=== PATIENT | female | born 1985 | race Caucasian/White ===

== ENCOUNTER 2024-01-04 13:59 | Outpatient (AMB) | payer MEDICAID, SELFPAY ==
--- NOTE | 2024-01-04 14:01 | MHC.OFFVIS ---
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 Patient reports that the right is worse than the left. She reports history of leg deformities as a child where she was seen at [facility] for corrective casting and bracing Patient reports that she has had an extensive history of bilateral arthroscopy/menisectomies. These were done at [facility]. She was seen at a pain [facility] facility, who injected steroid in bilateral knees. She would like to talk about knee replacements. Her pain is impacting her daily activity. She does not taking anything for her pain. She also complains of bilateral elbow pain, she has history of left elbow surgery to remove a baseball tumor. She now complains of significant numbness and tingling that radiates from her elbow to the finger tips. 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 Patient reports that the right is worse than the left. She reports history of leg deformities as a child where she was seen at [facility] for corrective casting and bracing Patient reports that she has had an extensive history of bilateral arthroscopy/menisectomies. These were done at [facility]. She was seen at a pain [facility] facility, who injected steroid in bilateral knees. She would like to talk about knee replacements. Her pain is impacting her daily activity. She does not taking anything for her pain. She states she can not walk more than a minute or 2 without pain. She feels quality of her life is severely diminished. She also complains of bilateral elbow pain, she has history of left elbow surgery to remove a baseball tumor. She now complains of significant numbness and tingling that radiates from her elbow to the finger tips. [facility] Social History (Updated 01/04/24 @ 14:12 by Rosetta Linares [facility]) Current occupational status: unemployed Physical Exam Vital Signs: BMI result Body Mass Index 32.4 Extrem Other: Varus bilateral knees left greater than right. Sharp tenderness to palpation medial joint line right greater than left. Lateral retropatellar tenderness to palpation right greater than left. She has 10-125 degrees of motion bilaterally. Results Reviewed Results Reviewed: I personally reviewed relevant radiographs. Severe medial and anterior compartment osteoarthritis bilaterally Assessment & Plan Assessment & Plan (1) Bilateral primary osteoarthritis of knee: Code(s): M17.0 - Bilateral primary osteoarthritis of knee Category: Medical Plan: This is a 38-year-old woman with bilateral knee osteoarthritis right greater than left. She states she has tried injections, medication, therapy, bracing, assistive devices and feels the quality of her life is poor. She states she is frustrated and wants to consider surgery. I have asked to see the records from her prior surgeries which she will obtain for me. I will see her back in 2 weeks. We will continue the discussion. At this time, she does have severe arthritis that involves more than just the medial compartment and so surgical treatment would be bilateral knee arthroplasty. She is only 38 and I would like to try to avoid this if possible. Orders: Orders XR knee LT 3V 01/04/24 M25.562 - Pain in left knee XR knee RT 3V 01/04/24 M25.561 - Pain in right knee Coding Level of Care Code New Pt Level 4 (97327) Diagnoses Bilateral primary osteoarthritis of knee M17.0
[2024-01-04 14:03] VITALS: BMI 32.4
== END 2024-01-04 15:33 | disposition home or self-care (01) ==
PROVIDERS: Visit Provider Orthopaedic Surgery
DX: M17.0 Bilateral primary osteoarthritis of knee (principal)
CPT/HCPCS: 99204

== ENCOUNTER 2024-01-04 13:59 | Outpatient (REF) | payer MEDICAID, SELFPAY ==
--- NOTE | ~2024-01-04 | XR_ITS ---
EXAMINATION: XR KNEE, RIGHT XR KNEE, LEFT CLINICAL INFORMATION: Right knee pain. Left knee pain. COMPARISON: None available.. TECHNIQUE: Standing AP view of both knees and lateral and sunrise views of each knee. FINDINGS: LEFT KNEE: Gpevodyr-ac-cydgmi medial compartment osteoarthritis with joint space narrowing, marginal osteophytes, and articular sclerosis. Cjwn-hm-zezteflg lateral and patellofemoral compartment osteoarthritis. Small joint effusion. No fractures. Slight varus angulation at the knee. RIGHT KNEE: Mhmsqakz-iu-ntfium medial compartment osteoarthritis with joint space narrowing, marginal osteophytes, and articular sclerosis. Slight varus angulation at the knee. More mild lateral and patellofemoral compartment osteoarthritis. Trace effusion. No fractures. XR/XR knee RT 3V IMPRESSION: Tricompartmental osteoarthritis in both knees, most notably in the medial compartments, left greater than right. Electronically signed by: Osman Bullock MD 01/10/2024 09:31 PM EDT
--- NOTE | ~2024-01-04 | XR_ITS ---
EXAMINATION: XR KNEE, RIGHT XR KNEE, LEFT CLINICAL INFORMATION: Right knee pain. Left knee pain. COMPARISON: None available.. TECHNIQUE: Standing AP view of both knees and lateral and sunrise views of each knee. FINDINGS: LEFT KNEE: Jlmcrjzw-ku-umpfvv medial compartment osteoarthritis with joint space narrowing, marginal osteophytes, and articular sclerosis. Uzdg-sn-gxxvfxnc lateral and patellofemoral compartment osteoarthritis. Small joint effusion. No fractures. Slight varus angulation at the knee. RIGHT KNEE: Gyworfix-ja-mkaxao medial compartment osteoarthritis with joint space narrowing, marginal osteophytes, and articular sclerosis. Slight varus angulation at the knee. More mild lateral and patellofemoral compartment osteoarthritis. Trace effusion. No fractures. XR/XR knee LT 3V IMPRESSION: Tricompartmental osteoarthritis in both knees, most notably in the medial compartments, left greater than right. Electronically signed by: Osman Bullock MD 01/10/2024 09:31 PM EDT
== END 2024-01-04 14:00 | disposition home or self-care (01) ==
LOC: HO.HOSX 13:59
PROVIDERS: PCP Internal Medicine; Visit Provider Orthopaedic Surgery
DX: M17.0 Bilateral primary osteoarthritis of knee (principal); M25.562 Pain in left knee; M25.561 Pain in right knee
CPT/HCPCS: 73562; 99202

== ENCOUNTER 2024-01-21 13:29 | Outpatient (AMB) | payer MEDICAID, SELFPAY ==
--- NOTE | 2024-01-21 13:30 | MHC.OFFVIS ---
Vital Signs 01/21/24 13:31 Height 5 ft 4 in Weight 189 lb BMI 32.4 Intake Visit Reasons: OV-B/L knee follow up 2 WKS Intake Note: Alex is a 38 year old female who presents today for a follow up of her bilateral knee OA. She was last seen on 01/04/2024. Patient reports that she is having increased pain today, Left knee worse than the left and also feeling pain in the left knee. Allergies celecoxib [From Celebrex] Allergy (Mild, Unverified 01/04/24 14:10) UNKNOWN NSAIDS (Non-Steroidal Anti-Inflamma [Nsaids] Allergy (Unknown, Unverified 01/04/24 14:10) RASH HPI HPI OV-B/L knee follow up 2 WKS: Details: Alex is a 38 year old female who presents today for a follow up of her bilateral knee OA. She was last seen on 01/04/2024. Patient reports that she is having increased pain today, Left knee worse than the left and also feeling pain in the left knee. She describes difficulty engaging in daily activities. She describes trying ?everything? to alleviate her pain including physical therapy, steroid injections, viscosupplementation as well as bracing. She feels that the quality of her life is severely diminished. Not only can she not exercise but she can not walk more than a few minutes without having to stop because of pain. The pain is medial right knee more than left. She feels at her wits end and has seen several surgeons who had many opinions about her treatment options and have ranged from waiting to getting a knee replacement. She did not have her imaging at last visit but today I reviewed her x-rays and discussed with her treatment options. [facility] Social History Current occupational status: unemployed Physical Exam Vital Signs: BMI result Body Mass Index 32.4 Extrem Other: She has a antalgic gait with varus malalignment bilaterally. Her range of motion is 5-125 degrees bilaterally. She has tenderness to palpation of the medial compartment that is sharp on the right. There is no effusion. Results Reviewed Results Reviewed: I personally reviewed relevant radiographs. There is varus malalignment with bilateral knee osteoarthritis that is affecting the medial and anterior compartments left greater than right. Assessment & Plan Assessment & Plan (1) Bilateral primary osteoarthritis of knee: Code(s): M17.0 - Bilateral primary osteoarthritis of knee Category: Medical Plan: This is a 38-year-old woman with bilateral knee osteoarthritis. She describes a history of knee arthroscopy of injections of viscosupplementation of activity modification of physical therapy and of continued and ongoing knee pain that prevents her from leading a normal life. I had a long discussion with her regarding treatment options including bracing injections physical therapy. I also discussed the challenges arthroplasty in a patient of her age and the risks of aseptic loosening and the high likelihood of need for revision surgery later in life. She understands these risks and is adamant that she has tried everything and would like to proceed forward with arthroplasty. I do not recommend this treatment for a 38-year-old but I do not think it is unreasonable given her attempts at nonoperative treatment and her goals of being able to walk comfortably without pain. Therefore, given the details of her history, I will will proceed forward with right knee replacement. She will require preoperative clearance and we will continue the educational process and I introduced her to our nurse navigator and we will proceed forward accordingly. I also described to her the risks, benefits and alternatives including, but not limited to, the risk of infection, stiffness, need for further surgery, fracture, medical complications such as blood clots, pulmonary embolisms, pneumonia, no ear urinary tract infections. She expressed understanding and we will proceed forward accordingly. Coding Level of Care Code Est Pt Level 4 (89292) Diagnoses Bilateral primary osteoarthritis of knee M17.0
[2024-01-21 13:31] VITALS: BMI 32.4
== END 2024-01-21 15:27 | disposition home or self-care (01) ==
PROVIDERS: PCP Internal Medicine; Visit Provider Orthopaedic Surgery
DX: M17.0 Bilateral primary osteoarthritis of knee (principal)
CPT/HCPCS: 99214

== ENCOUNTER → 2024-01-21 13:29 | Outpatient (BNVA) | payer MEDICAID, SELFPAY | PROVIDERS: PCP Internal Medicine; Visit Provider Orthopaedic Surgery | DX: M17.0 Bilateral primary osteoarthritis of knee (principal) | CPT/HCPCS: 99212 ==

== ENCOUNTER → 2024-03-01 10:52 | Outpatient (BNVA) | payer MEDICAID, SELFPAY | PROVIDERS: PCP Internal Medicine | DX: Z01.818 Encounter for other preprocedural examination (principal) ==

== ENCOUNTER 2024-03-31 10:14 | Outpatient (REF) | payer OTHER, SELFPAY | END 2024-03-31 10:15 | disposition home or self-care (01) | LOC: HO.HOSX 10:14 | PROVIDERS: Visit Provider Physician Assistant | DX: M25.562 Pain in left knee (principal); M17.11 Unilateral primary osteoarthritis, right knee | CPT/HCPCS: 73560; 73562; 99212 ==

== ENCOUNTER 2024-03-31 11:24 | Outpatient (AMB) | payer OTHER, SELFPAY ==
--- NOTE | 2024-03-31 11:41 | MHC.OFFVIS ---
Vital Signs 03/31/24 11:44 Height 5 ft 4 in Weight 193 lb BMI 33.1 Intake Visit Reasons: Pre-Op: R TKA w/NE 04/05/24 Intake Note: Alex is a 38 year old female who presents today with her fiance for her pre operative visit for her right TKA with Dr Buchanan DOS: 04/05/2024. Accompanied by: Fiance Allergies celecoxib [From Celebrex] Allergy (Mild, Unverified 03/31/24 11:44) UNKNOWN NSAIDS (Non-Steroidal Anti-Inflamma [Nsaids] Allergy (Unknown, Unverified 03/31/24 11:44) RASH risperidone Adverse Reaction (Severe, Unverified 03/31/24 11:44) Angioedema acetaminophen [From Tylenol] Adverse Reaction (Mild, Unverified 03/31/24 11:44) Hives Medication List - Last Reconciled 03/31/24 by Melissa Montalvo PA-C alprazolam 1 mg PO TID ashwagandha extract 120 mg PO DAILY methadone 120 mg PO DAILY mometasone 0.1% 1 appl topical BID olanzapine 7.5 mg PO BEDTIME oxcarbazepine 600 mg PO BEDTIME oxcarbazepine 300 mg PO QAM prazosin 4 - 6 mg PO BEDTIME PRN pregabalin 100 mg PO BEDTIME pregabalin 75 mg PO TID walker Folding Front wheeled walker HPI Comments Details: Ms Rodriguez presents to the office today for preop visit. She is scheduled for right total knee arthroplasty with Dr. Buchanan. She continues to have ongoing pain and difficulty with ambulation in the right knee, which is affecting her quality of life; therefore, she has elected to move forward with surgery. [facility] Medical History Methadone use COVID-19 Septic arthritis Night terrors Osteoarthritis PTSD (post-traumatic stress disorder) Bipolar 1 disorder Tenosynovitis Rheumatoid arthritis Fibromyalgia Depression Anxiety Surgical History Hx of arthroscopy of right knee Hx of elbow surgery Hx of arthroscopy of left knee Social History Are you a primary palliative care physician to a significant other at home: No Do you presently have visiting nurse or other home services: No Patient Tobacco Use Status: Former Tobacco user Current occupational status: unemployed Review of Systems Const All systems reviewed & are unremarkable except as noted in HPI and below Physical Exam Vital Signs: BMI result Body Mass Index 33.1 Const General: cooperative and no acute distress Orientation/consciousness: patient oriented x3 HEENT Head: Yes normal to inspection, Yes normocephalic and Yes atraumatic Eyes General: appearance normal, both eyes and all related structures Neck Neck: Yes normal visual inspection and Yes no lymphadenopathy Resp Effort & Inspection: normal respiratory effort and able to speak in complete sentences Cardio Rate: regular rate Peripheral pulses: Peripheral pulses 2+ throughout GI Inspection: Yes normal to inspection Palpation (GI): Soft to palpation Skin General skin exam: no rashes or lesions noted Neuro General: patient oriented x3 Extrem Other: She has a antalgic gait with varus malalignment bilaterally. Her range of motion is 5-125 degrees bilaterally. She has tenderness to palpation of the medial compartment that is sharp on the right. There is no effusion. Psych Appearance: grossly normal Mental Status: mental status grossly normal Assessment & Plan Assessment & Plan (1) Osteoarthritis of right knee: Code(s): M17.11 - Unilateral primary osteoarthritis, right knee Category: Medical Plan I discussed in detail the procedure and what to expect pre and post operatively. We discussed the risks, benefits and alternatives to the surgery as well as the rehabilitation course. The risks; which include, but are not limited to infection, bleeding, nerve injury, ongoing pain, swelling, and stiffness, perioperative risk of injury to bones and soft tissues, and blood clots. I?ve answered all questions and with their understanding they have consented to move forward with Right total knee arthroplasty with Dr. Buchanan She is on methadone Orders: Orders XR knee RT 3V Today M17.11 - Unilateral primary osteoarthritis, right knee PT Evaluation and Treatment Today Z96.651 - Presence of right artificial knee joint XR knee LT 1V Today M25.562 - Pain in left knee Patient Instructions: Scribed for Melissa Montalvo PA-C, by Meng Will adjunct faculty for medical terminology, on 03/31/2024 at 11:30 AM EST.? I, Melissa Montalvo PA-C, have personally reviewed and agree with the information entered by the scribe. Coding Level of Care Code Est Pt Level 3 (89968) Complex EM visit Add On G2211 Diagnoses Osteoarthritis of right knee M17.11
[2024-03-31 11:44] VITALS: BMI 33.1
== END 2024-03-31 12:02 | disposition home or self-care (01) ==
PROVIDERS: PCP Internal Medicine; Visit Provider Physician Assistant
DX: M17.11 Unilateral primary osteoarthritis, right knee (principal)
CPT/HCPCS: 99213; G2211

== ENCOUNTER 2024-03-31 12:03 | Outpatient (REF) | payer OTHER, SELFPAY | END 2024-03-31 12:04 | disposition home or self-care (01) | LOC: HO.LAB 12:03 | PROVIDERS: PCP Internal Medicine; Visit Provider Physician Assistant | DX: Z13.89 Encounter for screening for other disorder (principal) ==

== ENCOUNTER 2024-04-05 06:57 | Day surgery (SDC) | payer OTHER, SELFPAY ==
[2024-03-08 10:32] VITALS: BP 134/74; PULSE 76; RESP 20; O2SAT 100; BMI 33.1
--- NOTE | 2024-03-08 10:52 | P.CONAN_ITS ---
Documented by User: Ro Stafford NP 04/04/24 12:24 HPI - Anesthesia Eval Consult details Narrative: 38yo F for Right Knee Replacement Total, 04/05/24 Optimized per PCP No recent illness No CP/SOB with minimal activity r/t pain RA/OA: No steroid/NSAID tx APAP allergy (hives). Discussed removal of jewlery/piercings/lashes. Pt verbalized understanding and will remove for DOS. PMFSH Active Problems Active Problems: All Active Problems Osteoarthritis of right knee (Acute) Bilateral primary osteoarthritis of knee (Acute) Past Medical History Medical History Methadone use COVID-19 Septic arthritis Night terrors Osteoarthritis PTSD (post-traumatic stress disorder) Bipolar 1 disorder Tenosynovitis Rheumatoid arthritis Fibromyalgia Depression Anxiety Family History Family history of problems with anesthesia: No Surgical History Surgical History Hx of arthroscopy of right knee Hx of elbow surgery Hx of arthroscopy of left knee History of Problems with Anesthesia: No Social History Social History Are you a primary primary care pediatrician to a significant other at home: No Do you presently have visiting nurse or other home services: No Patient Tobacco Use Status: Former Tobacco user Use of substances other than those prescribed or required for medical reasons: Yes Substance Use Type Other:: vape pen Substance Use Frequency: Daily Have you been hit, kicked, punched, or otherwise hurt by someone within the past year? If so, by whom?: No Are you DNR?: No Advance Directives: No Advance Directives Information Provided: Yes Advance Directives on File: No Recently lost weight without trying: No Nutrition Risks: No Nutritional Risk Patient : No : No Poor oral hygiene: Yes (full upper and lower dentures) Current occupational status: unemployed Meds Allergies Allergy/AdvReac Type Severity Reaction Status Date / Time celecoxib [From Celebrex] Allergy Severe Hives Verified 04/05/24 07:45 NSAIDS (Non-Steroidal Allergy Severe RASH Verified 04/05/24 07:45 Anti-Inflamma [Nsaids] risperidone AdvReac Severe Angioedema Verified 04/05/24 07:45 acetaminophen [From Tylenol] AdvReac Mild Hives Verified 04/05/24 07:45 Home Medications ?Medication ?Instructions ?Recorded ?Confirmed ?Last Taken ?Type alprazolam 1 mg tablet 1 mg PO TID 01/04/24 04/05/24 04/05/24 History olanzapine 7.5 mg tablet 7.5 mg PO BEDTIME 01/04/24 04/05/24 04/04/24 History oxcarbazepine 300 mg tablet 300 mg PO QAM 01/04/24 04/05/24 04/05/24 History pregabalin 100 mg capsule 100 mg PO BEDTIME 01/04/24 04/05/24 04/04/24 History pregabalin 75 mg capsule 75 mg PO TID 01/04/24 04/05/24 04/04/24 History prazosin 2 mg capsule 4 - 6 mg PO BEDTIME PRN Insomnia 03/07/24 04/05/24 Unknown History ashwagandha extract 120 mg capsule 120 mg PO DAILY 03/08/24 04/05/24 03/31/24 History oxcarbazepine 300 mg tablet 600 mg PO BEDTIME 03/08/24 04/05/24 04/04/24 History methadone 10 mg tablet 120 mg PO DAILY 03/09/24 04/05/24 04/04/24 07:25 History Exam Height,Weight and Vital Signs: Height 5 ft 4 in Weight 87.543 kg Last Vital Signs Pulse 76 03/08/24 10:32 Resp 20 03/08/24 10:32 BP 134/74 03/08/24 10:32 Pulse Ox 100 03/08/24 10:32 O2 Del Method Room Air 03/08/24 10:32 Pertinent Lab Results Pertinent Lab Results: CBC and BMP 01/2024 from outside facility WNL Narrative Narrative: EKG 01/2024 NSR @ 63 Airway TM Dist: >3cm Neck ROM: Full Denture: Upper and Lower Heart: RRR Lungs: CTAB Assessment and Plan Assessment Anesthesia Assessment: Anesthesia Plan Discussed, Smoking Cess. Discussed and PAT Visit Final Anesthetic Review Family History of Problems with Anesthesia: No History of Problems with Anesthesia: No Documented by User: Desirae Queen MD 04/05/24 08:38 PMFSH Past Medical History Medical History Methadone use COVID-19 Septic arthritis Night terrors Osteoarthritis PTSD (post-traumatic stress disorder) Bipolar 1 disorder Tenosynovitis Rheumatoid arthritis Fibromyalgia Depression Anxiety Surgical History Surgical History Hx of arthroscopy of right knee Hx of elbow surgery Hx of arthroscopy of left knee Social History Social History Are you a primary primary care pediatrician to a significant other at home: No Do you presently have visiting nurse or other home services: No Patient Tobacco Use Status: Former Tobacco user Use of substances other than those prescribed or required for medical reasons: Yes Substance Use Type Other:: vape pen Substance Use Frequency: Daily Have you been hit, kicked, punched, or otherwise hurt by someone within the past year? If so, by whom?: No Are you DNR?: No Advance Directives: No Advance Directives Information Provided: Yes Advance Directives on File: No Recently lost weight without trying: No Nutrition Risks: No Nutritional Risk Patient : No : No Poor oral hygiene: Yes (full upper and lower dentures) Current occupational status: unemployed Meds Allergies Allergy/AdvReac Type Severity Reaction Status Date / Time celecoxib [From Celebrex] Allergy Severe Hives Verified 04/05/24 07:45 NSAIDS (Non-Steroidal Allergy Severe RASH Verified 04/05/24 07:45 Anti-Inflamma [Nsaids] risperidone AdvReac Severe Angioedema Verified 04/05/24 07:45 acetaminophen [From Tylenol] AdvReac Mild Hives Verified 04/05/24 07:45 Home Medications ?Medication ?Instructions ?Recorded ?Confirmed ?Last Taken ?Type alprazolam 1 mg tablet 1 mg PO TID 01/04/24 04/05/24 04/05/24 History olanzapine 7.5 mg tablet 7.5 mg PO BEDTIME 01/04/24 04/05/24 04/04/24 History oxcarbazepine 300 mg tablet 300 mg PO QAM 01/04/24 04/05/24 04/05/24 History pregabalin 100 mg capsule 100 mg PO BEDTIME 01/04/24 04/05/24 04/04/24 History pregabalin 75 mg capsule 75 mg PO TID 01/04/24 04/05/24 04/04/24 History prazosin 2 mg capsule 4 - 6 mg PO BEDTIME PRN Insomnia 03/07/24 04/05/24 Unknown History ashwagandha extract 120 mg capsule 120 mg PO DAILY 03/08/24 04/05/24 03/31/24 History oxcarbazepine 300 mg tablet 600 mg PO BEDTIME 03/08/24 04/05/24 04/04/24 History methadone 10 mg tablet 120 mg PO DAILY 03/09/24 04/05/24 04/04/24 07:25 History Exam Airway Mallampati Class: II TM Dist: >3cm Neck ROM: Full Assessment and Plan Final Anesthetic Review NPO: Yes ASA Class: III Final Preanesthetic Review: No Changes in Pt Med Stat, Meds/Allgs Chart Reviewed, Consent Obtained/Reviewed and Anes Risks/Benef Reviewed Patient Risk: Intermediate Procedure Risk: Intermediate Anesthetic Plan Anesthetic Plan: GA, Regional Block and Agree w/ Assess. and Plan Disposition: Standard PACU
[2024-03-08 13:16] LABS: MRSA Nasal PCR NEGATIVE (Negative); SA Nasal PCR POSITIVE (Negative)
--- NOTE | 2024-04-04 09:44 | HE.PHANOTE ---
METHADONE Dose: 120mg, last dosed 04/04/24 @0725 per Enrique Landeros LPN at [facility]. Patient given 13 take home bottles with 120mg in each bottle.
[2024-04-05] VITALS (19 sets, daily range): BP systolic 131–184; BP diastolic 66–109; PULSE 66–96; RESP 16–24; TEMP 35.8–36.7; O2SAT 93–99; BMI 33.3
--- NOTE | ~2024-04-05 | XR_ITS ---
EXAMINATION: XR KNEE, RIGHT CLINICAL INFORMATION: rt tka COMPARISON: X-ray 03/31/2024 TECHNIQUE: Two views of the right knee. FINDINGS: Status post total knee arthroplasty. Usual position and alignment. No acute periprosthetic fractures. There is gas in the soft tissue and joint. Skin dennis.. XR/XR knee RT 2V IMPRESSION: Postsurgical changes status post total knee arthroplasty. Electronically signed by: Roberto Harden MD 04/05/2024 04:18 PM ELSIE CURIEL
--- NOTE | 2024-04-05 07:28 | MHC.SHP ---
Pre-Procedural Eval Section A - 24 Hr Update-Section A only Date of Service: 04/05/24 The patient is an INPATIENT: No Changes since office visit: No Cold of Flu in the past 2 weeks, No New Medical Problems, No Changes in Medication and No Patient answered all questions The patient has been examined within 24 hours of the surgical procedure. The History & Physical has been completed within 30 days and I have reviewed it.: Yes Section B - Complete if H&P > 30 days Chief Complaint: RT TKA Allergies: Allergies Allergy/AdvReac Type Severity Reaction Status Date / Time celecoxib [From Celebrex] Allergy Mild UNKNOWN Unverified 03/31/24 11:44 NSAIDS (Non-Steroidal Allergy Unknown RASH Unverified 03/31/24 11:44 Anti-Inflamma [Nsaids] risperidone AdvReac Severe Angioedema Unverified 03/31/24 11:44 acetaminophen [From Tylenol] AdvReac Mild Hives Unverified 03/31/24 11:44 Plan I have reviewed the history and physical and performed a pertinent physical examination on my patient. No changes have occurred unless specified. Time Spent With Patient Time: Total time managing care of this patient today ____ minutes.
[2024-04-05 07:34] LABS: UPreg QC Valid YES; Urine Pregnancy NEGATIVE (NEGATIVE)
[2024-04-05] MEDS: Albuterol Sulfate (0.083%) 2.5 MG/3 ML VIAL.NEB INHALE (08:20)
[2024-04-05] MEDS: Lactated Ringers 1,000 ML 100 ML IVCONT ×2 (08:30→14:08)
[2024-04-05 08:32] LABS: Hematocrit 43.4 % (37.0-47.0); Hemoglobin 14.9 g/dl (12.0-16.0)
--- NOTE | 2024-04-05 10:08 | PC.NURSE ---
IV on right upper arm infiltrated. IV site removed. New IV placed on left upper arm, tolerated well. Dr. Bret oshea.
[2024-04-05] MEDS: HYDROmorphone HCl 0.5 MG/0.5 ML SYRINGE 0.25 MG IVPUSH ×8 (12:05→12:40)
--- NOTE | 2024-04-05 12:15 | PM.OP ---
Brief Operative Note Date of Service: 04/05/24 Pre-op diagnosis: Right knee OA Post-op diagnosis: same Procedure: Right TKA Implants: Jaz Triathlon press fit cruciate retaining Surgeon: Juanjose Buchanan MD Anesthesia: GETA and regional Was an Patch Press Operator used for this Procedure?: Yes Patch Press Operator: Melissa Montalvo Estimated blood loss (mL): 100 IV fluids (mL): 750 Pathology: none sent Condition: stable Disposition: PACU
--- NOTE | 2024-04-05 12:17 | W.PM.OPN ---
Operative Note Operative Note Date of Service: 04/05/24 Narrative: Date of Service: 04/05/24 Pre-op diagnosis: Right knee OA Post-op diagnosis: same Procedure: Right TKA Implants: [place] Triathlon press fit cruciate retaining 06/28/9cr/32a Surgeon: Juanjose Buchanan MD Anesthesia: GETA and regional Was an Pipe Organ Builder used for this Procedure?: Yes Pipe Organ Builder: Melissa Montalvo Estimated blood loss (mL): 100 IV fluids (mL): 750 Pathology: none sent Condition: stable Disposition: PACU Procedure in detail: The patient was brought to the operating room and prepped and draped in standard sterile fashion. A time-out was called to identify proper site proper procedure proper surgeon and IV antibiotics were administered. 1 g of IV tranexamic acid was administered. I began by making a midline incision to the retinaculum and performed a medial parapatellar arthrotomy. The patella was translated laterally and the knee was flexed up. There was eburnation of the MFC and the patella with minimal lateral compartment changes. . I performed a small medial peel and resected the infrapatellar fat pad. Issac's line was then used to drill my intramedullary femoral guide and my distal femur cut of 12 mm (10 deg flexion contracture) was made in 5 degrees of valgus while protecting the soft tissues. I then measured a # 3 femur and placed my cutting guide and made my anterior posterior and chamfer cuts protecting the soft tissues at all times. Once I was satisfied with my cuts I turned my attention to the tibia. I removed the meniscus medially and laterally and , using an external cutting guide, in line with the tibial crest and the third ray, I made my distal tibial cut in 3 deg slope of while protecting the PCL the posterior soft tissues at all times. An extension block was used to confirm appropriate amount of bony resection. I then sized a #4 tibia and once I was satisfied that there was complete tibial coverage I placed my trial and with the trial femur in place took the knee through range of motion. I was satisfied with the extension and flexion as well as the stability and balance at 0, 30 and 90 degrees. I then turned my attention to the patella where I removed 1 cm from the undersurface of the patella and then trialed a 32a patellar button. Again the knee was taken through range of motion I was satisfied with the tracking. I then returned to the femur and drilled my femoral lug holes and prepared the tibia. A femoral bone plug was placed and the knee was irrigated copiously. I then press fit the patella, tibia and femur in standard fashion. I trialed different inserts until I selected a #9 insert. The final insert was placed and local TXA was administered. A Werewolf cautery wand was used to maintain hemostasis over the posterior capsule and the meniscal beds. The knee was then closed with a running Quill suture, a 3 0 Vicryl and dennis on the skin. Patient was then placed in sterile dressing and brought to recovery room in stable condition there were no known complications.
--- NOTE | 2024-04-05 12:55 | P.F2F_ITS ---
Service Date Service Date: 04/05/24 Encounter Date of encounter: 04/06/24 Reasons for Services Signs and symptoms assessed: s/p RTKA Pt. is considered homebound due to recent surgery. Unable to drive, poor balance, poor gait mechanics. Reason for physical therapy: home safety and mobility, therapeutic exercises, restore joint function, gait/transfer training and ADL training Homebound: Leaving the home is medically contraindicated at this time without the asist of a device and/or another person due th the listed conditions above and below. Reason homebound: unsteady gait / fall risk, leg weakness, pain with ambulation, pain with transfers, poor balance / fall risk and unable to drive Certification: Based on the above findings, I certify that this patient is confined to the home and needs intermittent long-term care, physical therapy and/or speech th erapy, or continues to need occupational therapy. The patient is under my care, and I have initiated the establishment of the plan of care. The patient will be followed by a physician who will periodically review the plan of care. Time Spent With Patient Time: Total time managing care of this patient today ____ minutes.
--- NOTE | 2024-04-05 12:55 | PM.DS ---
DS: Providers Provider Date of Service: 04/06/24 Primary care physician: Rishabh Montoya MD DS: Summary Hospital Course Hospital Course: The patient underwent a successful right total knee arthroplasty, they were transferred to PACU and then to the floor to recover. During their stay, their vitals were stable, afebrile at 97.6. Labs were unremarkable, H/H 13.0/37.8. POD 1 they were started on Lovenox for DVT ppx, they also received Physical Therapy services. Prior to discharge, their dressing was clean dry and intact and the plan was to be discharged home with VNA services. Time Attestation Discharge Coordination Time (in mins): 30 Quality: Safe Use of Opioids Does Pt have an Active Cancer Diagnosis on the Problem List?: No Quality: Stroke Does the patient have a stroke diagnosis?: No Physical Exam Vital Signs: Vital Signs: Last Vital Signs Temp 98 F 04/05/24 12:05 Pulse 72 04/05/24 12:40 Resp 18 04/05/24 12:40 BP 180/96 H 04/05/24 12:40 Pulse Ox 99 04/05/24 12:40 O2 Del Method Nasal Cannula 04/05/24 12:40 O2 Flow Rate 2 04/05/24 12:40 BMI result Body Mass Index 33.3 Const: General: cooperative, healthy appearing and no acute distress Resp: Effort & Inspection: normal respiratory effort and able to speak in complete sentences Cardio: Rate: regular rate Peripheral pulses: Peripheral pulses 2+ throughout GI: Palpation (GI): Soft to palpation Skin: Lesions: no lesions Rashes: no rashes Extrem: Other: right knee dressing is c/d/i. Able to dorsi/plantar flex. Calf is supple and nontender. Sensation intact. Pedal pulse intact. DS: Data Data Completed and Pending Pending studies at discharge: Pending at discharge 04/05/24 10:38 Surgical [PTH] Routine Labs on day of discharge: Laboratory Results - last 24 hr 04/05/24 04/05/24 07:08 08:25 Hgb 14.9 Hct 43.4 Urine Test NEGATIVE Discharge Plan Discharge Patient Disposition: Home Health Service Referrals: Karina Ashby PA-C [Physician Barrel Lathe Operator Outside] - 04/21/24 12:30 pm Discharge Medications: New enoxaparin 40 mg/0.4 mL Syringe 40 mg subcut Q24H 42 Days Qty: 16.8 0RF oxycodone 10 mg tablet 10 mg PO Q4H PRN (Reason: Pain, Moderate(Pain Scale 4-6)) 7 Days Qty: 42 0RF Rx Instructions: Partial Fill upon patient request. docusate sodium 100 mg Capsule 100 mg PO BID 30 Days Qty: 60 0RF Continued (DME) walker Misc See Rx Instructions .MEDSUPPLY Qty: 1 0RF Rx Instructions: Folding Front wheeled walker prazosin 2 mg capsule 4 - 6 mg PO BEDTIME PRN (Reason: Insomnia) Patient Comments: night terrors oxcarbazepine 300 mg Tablet 600 mg PO BEDTIME ashwagandha extract 120 mg Capsule 120 mg PO DAILY methadone [Methadone Intensol] 10 mg/mL Concentrate 120 mg PO DAILY oxcarbazepine 300 mg tablet 300 mg PO QAM alprazolam 1 mg tablet 1 mg PO TID pregabalin 100 mg capsule 100 mg PO BEDTIME pregabalin 75 mg capsule 75 mg PO TID olanzapine 7.5 mg tablet 7.5 mg PO BEDTIME Discharge Orders: Discharge Order (Routine); Ordered 04/06/24 Ordered By: Karina Ashby Diet: Advance to usual diet Activity on Discharge: Use cane or walker Activity Restrictions/Additional Instructions: Physical Therapy for ROM 0-120, quad strength, gait training. Use walker for ambulation Limit stair climbing, No shower, No tub bath, No driving Continue anticoagulant x 6 weeks Keep Aquacel dressing clean, dry and intact. Follow up with orthopedics in 2 weeks Print Language: Serbian
[2024-04-05] MEDS: HYDROmorphone HCl 0.5 MG/0.5 ML SYRINGE IVPUSH ×4 (13:30→23:53)
[2024-04-05] MEDS: ALPRAZolam 0.5 MG TABLET 1 MG PO ×2 (14:08→20:34)
[2024-04-05] MEDS: Pregabalin 75 MG CAPSULE PO (14:30)
[2024-04-05] MEDS: Acetaminophen 1,000 MG/100 ML PIGGYBACK 400 MG IV (14:30)
[2024-04-05] MEDS: ceFAZolin Sodium/Dextrose,Iso 2 GM/50 ML PIGGYBACK IV (15:29)
[2024-04-05] MEDS: oxyCODONE HCl Immed Release 5 MG TABLET 10 MG PO ×2 (16:25→20:34)
[2024-04-05] MEDS: OLANZapine 7.5 MG TABLET PO (20:34)
[2024-04-05] MEDS: oxyCODONE HCl ER 10 MG TAB.ER.12H PO (20:35)
[2024-04-05] MEDS: Docusate Sodium 100 MG CAPSULE PO (20:35)
[2024-04-05] MEDS: OXcarbazepine 300 MG TABLET 600 MG PO (20:35)
[2024-04-05] MEDS: Pregabalin 100 MG CAPSULE PO (20:35)
[2024-04-05] MEDS: 0.9 % Sodium Chloride Flush 3 ML SYRINGE IVFLUSH (23:54)
[2024-04-06] MEDS: oxyCODONE HCl Immed Release 5 MG TABLET 10 MG PO ×3 (01:06→10:27)
[2024-04-06 03:56] VITALS: BP 139/73; PULSE 65; RESP 16; TEMP 36.2; O2SAT 94
[2024-04-06] MEDS: HYDROmorphone HCl 0.5 MG/0.5 ML SYRINGE IVPUSH ×2 (03:58→09:06)
[2024-04-06 06:58] LABS: MANUAL DIFF FLAG NO
[2024-04-06 07:04] LABS: Basophils Percent Auto 0.2 % (0-2); Eosinophils Percent Auto 0.2 % (0-4); Hematocrit 37.8 % (37.0-47.0); Imm Gran Abs Auto 0.05 X10*3/uL (0.00-0.03); Imm Gran Pct Auto 0.5 % (0.0-0.4); Lymphocytes Absolute Auto 3.1 X10*3/uL (1.2-4.9); Lymphocytes Percent Auto 29.1 % (20-40); Mean Corpuscular HGB Conc 34.4 g/dl (31.0-35.0); Mean Corpuscular Hemoglobin 32.3 pg (27.0-33.0); Monocytes Absolute Auto 1.2 X10*3/uL (0.1-1.2); Monocytes Percent Auto 11.3 % (2-11); Neutrophils Absolute Auto 6.2 x10*3/uL (2.0-8.3); Neutrophils Percent Auto 58.7 % (45-73); Platelet Count 242 X10*3/uL (160-400); Red Blood Count 4.02 X10*6/uL (4.20-5.50); Red Cell Distribution Width 12.2 % (11.0-16.0); White Blood Count 10.5 X10*3/uL (4.8-10.8)
[2024-04-06 07:17] LABS: Anion Gap 12 (12-20); Blood Urea Nitrogen 7 mg/dL (9-16); Calcium 8.3 mg/dL (8.4-10.2); Carbon Dioxide 20 mmol/L (22-29); Chloride 104 mmol/L (96-108); Creatinine Clr Calc Pharmacy 119.9; Estimated Glomerular Filt Rate > 60; Glucose Fasting 154 mg/dL (60-99); Sodium 132 mmol/L (135-145)
[2024-04-06] MEDS: oxyCODONE HCl ER 10 MG TAB.ER.12H PO (07:17)
[2024-04-06] MEDS: Pregabalin 75 MG CAPSULE PO (07:17)
[2024-04-06] MEDS: ALPRAZolam 0.5 MG TABLET 1 MG PO (07:17)
[2024-04-06] MEDS: Docusate Sodium 100 MG CAPSULE PO (07:17)
[2024-04-06] MEDS: OXcarbazepine 300 MG TABLET PO (07:17)
[2024-04-06] MEDS: methADONE HCl 20 MG/2 ML ORAL.CONC 120 MG PO (07:18)
[2024-04-06] MEDS: 0.9 % Sodium Chloride Flush 3 ML SYRINGE IVFLUSH (07:18)
[2024-04-06 07:28] VITALS: BP 145/78; PULSE 73; RESP 18; TEMP 36.1; O2SAT 95
--- NOTE | 2024-04-06 08:03 | PM.PNORT ---
Subjective Subjective Date of Service: 04/06/24 Interval history: POD1 s/p RTKA Patient is resting in bed No overnight events Reports pain is difficult to manage No additional complaints Physical Exam Vital Signs: Vital Signs: Last Vital Signs Temp 96.9 F 04/06/24 07:28 Pulse 73 04/06/24 07:28 Resp 18 04/06/24 07:28 BP 145/78 H 04/06/24 07:28 Pulse Ox 95 04/06/24 07:28 O2 Del Method Room Air 04/06/24 07:28 O2 Flow Rate 2 04/05/24 12:40 BMI result Body Mass Index 33.3 Extrem: Other: right knee dressing is c/d/i. Able to dorsi/plantar flex. Calf is supple and nontender. Sensation intact. Pedal pulse intact. Procedures Date of Service Date of Service: 04/06/24 Progress Note: A&P Assessment and plan (1) Status post total knee replacement, right: Status: Acute Assessment and Plan: Continue pain mgmnt -Difficulty with pain management due to Methadone use -Continue Methadone at regular dose Begin Lovenox for dvt ppx Begin PT for RTKA -Patient reported she was unable to activate her quad which was causing severe anxiety and declined to get up and out of bed yesterday.- Educated that this is normal post op. She understands and accepts. Dispo planning-Pending PT eval, pain mgmnt Patient will need ongoing hospital stay due to pain management and additional physical therapy Time Spent With Patient Time: Total time managing care of this patient today ____ minutes. Quality Stroke Does the patient have a stroke diagnosis?: No VTE Prior VTE?: No VTE Risk Level:: Medical - moderate - high VTE Device Contraindication: N/A - Device Ordered VTE Drug Contraindication: N/A - Med Ordered
[2024-04-06 08:56] VITALS: BP 145/78; PULSE 73; O2SAT 95
--- NOTE | 2024-04-06 08:58 | HO.POSTANES ---
Post Anesthesia Evaluation Post Anesthesia Evaluation Date of Service: 04/06/24 Vital Signs: Vital Signs Temp Pulse Resp BP Pulse Ox O2 Del Method 04/06/24 07:28 96.9 F 73 18 145/78 H 95 Room Air 04/06/24 03:56 97.2 F 65 16 139/73 94 Room Air 04/05/24 23:36 96.8 F 70 16 138/66 93 Room Air Anesthesia: General Endotracheal-GETA Mental Status: Awake Pain Control: Satisfactory (difficult to manage, pt on methadone ) Nausea/Vomiting: None Hydration: Adequate Anesthesia-Related Issues: No Anes. Related Issues
--- NOTE | 2024-04-06 09:48 | MHC.CM.PN ---
Addendum entered by Sasha Lopez RN 04/06/24 09:52: Methadone through [facility]. Original Note: Patient lives in an apartment w/ S.O. and roommate. Has a cane and walker that she uses PRN. Otherwise independent. PCP Rishabh Montoya MD No HCP. CM provided education and offered assistance. Patient declined. DP: Medically cleared for dc home w/ new HVNA services. Will dc on Lovenox. RN will provide teach prior to dc. S.O. will provide transport ~10am. RN aware.
[2024-04-06] MEDS: Enoxaparin Sodium 40 MG/0.4 ML SYRINGE SUBCUT (10:27)
== END 2024-04-06 11:30 | disposition home health service (06) ==
LOC: HO.SSS 07:06 → HO.S3 12:38
PROVIDERS: Nurse Practitioner; Physician Assistant; PCP Internal Medicine; Visit Provider Orthopaedic Surgery
PROC: (CPT 27447; principal; 2024-04-05 09:50)
DX: M17.11 Unilateral primary osteoarthritis, right knee (principal); M06.9 Rheumatoid arthritis, unspecified; M00.9 Pyogenic arthritis, unspecified; F43.10 Post-traumatic stress disorder, unspecified; F31.9 Bipolar disorder, unspecified; Z79.899 Other long term (current) drug therapy; Z79.891 Long term (current) use of opiate analgesic; Z88.6 Allergy status to analgesic agent; Z88.8 Allergy status to other drugs, medicaments and biological substances; Z87.891 Personal history of nicotine dependence; Z98.890 Other specified postprocedural states; Z56.0 Unemployment, unspecified
CPT/HCPCS: 27447; 36415; 73560; 80048; 81025; 85014; 85018; 85025; 86850; 86900; 86901; 87640; 87641; 88305; 88311; 94640; 97162; C1776; J0131; J0665; J0690; J1100; J1171; J1650; J2003; J2250; J2405; J2704; J2795; J3010; J7120

== ENCOUNTER → 2024-04-05 06:57 | Outpatient (BNV) | payer OTHER, SELFPAY | PROVIDERS: PCP Internal Medicine; Visit Provider Orthopaedic Surgery | DX: Z47.1 Aftercare following joint replacement surgery (principal); Z96.651 Presence of right artificial knee joint | CPT/HCPCS: 27447; 99024; G0180 ==

== ENCOUNTER 2024-04-11 12:52 | Emergency (ER) | payer OTHER, SELFPAY ==
--- NOTE | ~2024-04-11 | XR_ITS ---
EXAMINATION: XR KNEE, RIGHT CLINICAL INFORMATION: pain, recent TKA COMPARISON: 04/05/2024, 03/31/2024, 01/04/2024. TECHNIQUE: Four views of the right knee. FINDINGS: There is been a total right knee arthroplasty, with tibial, and femoral components intact, well seated, in anatomic alignment. No periprosthetic fracture or evidence of loosening. There is no fracture, or focal bony abnormality. There is a prominent suprapatellar joint effusion on the lateral projection. There are skin dennis in the ventral midline. There appears to be slightly increased soft tissue swelling anteriorly when compared with the prior exam of 04/05/2024. XR/XR knee RT 3V IMPRESSION: 1. Right knee arthroplasty without complication. 2. Joint effusion in the suprapatellar bursa. 3. Increasing anteromedial soft tissue swelling when compared with 04/05/2024. Electronically signed by: Osman Jimenez MD 04/11/2024 02:29 PM ELSIE
--- NOTE | ~2024-04-11 | US_ITS ---
EXAMINATION: US TRIPLEX LOWER EXTREMITY, RIGHT CLINICAL INFORMATION: Swelling, knee replacement 04/05/2024. Rule out DVT. COMPARISON: None available. TECHNIQUE: Color-flow triplex imaging with spectral analysis and compression Doppler were performed on the right lower extremity. FINDINGS: Respiratory variation, normal compression and augmented flow are noted throughout the right lower extremity. The visualized common femoral vein, superficial femoral vein, profunda femoral vein, popliteal vein and midcalf posterior tibial venous segments show no evidence of deep venous thrombosis. The right peroneal vein could not be well visualized due to edema. There is no Lawson's cyst. US/US venous duplex LE RT IMPRESSION: No evidence of deep venous thrombosis involving the right lower extremity. Electronically signed by: Osman Jimenez MD 04/11/2024 04:46 PM ELSIE CURIEL
[2024-04-11 13:22] VITALS: BP 123/90; PULSE 86; RESP 16; TEMP 37.2; O2SAT 95; BMI 33.3
--- NOTE | 2024-04-11 13:24 | ED_ITS ---
HPI - General Adult General Chief complaint: Wound/Laceration Stated complaint: wound check Time Seen by Provider: 04/11/24 14:26 Source: patient and RN notes reviewed Mode of arrival: ambulatory Limitations: no limitations History of Present Illness ED Provider: Nathaly Gamboa PA-C HPI narrative: This is a 28-ldsz-hho-female, with a history of osteoarthritis with recent right total knee replacement performed on 04/05/2024, who presents to the ER for wound check. Patient states that she has noticed increased pain, swelling, drainage from her surgical incision site. She states that the pain in her knee feels worse today. Also endorsing some swelling to her leg. She denies any fevers, chills, chest pain, shortness of breath, abdominal pain, nausea, vomiting or diarrhea. She has been taking her prescribed pain medication at home with some relief. She was told by her physical therapist to come to the emergency room for evaluation as she noticed increased drainage from her wound site and was concerned that this was infected. Other complaints or concerns at this time. MD complaint: Wound check Onset (ago): day(s) Quality: aching Pain Consistency: constant Relieving factors: none Exacerbating factors: none Associated symptoms: denies other symptoms Treatments prior to arrival: none Related Data Home Medications ?Medication ?Instructions ?Recorded ?Confirmed alprazolam 1 mg tablet 1 mg PO TID 01/04/24 04/05/24 olanzapine 7.5 mg tablet 7.5 mg PO BEDTIME 01/04/24 04/05/24 oxcarbazepine 300 mg tablet 300 mg PO QAM 01/04/24 04/05/24 pregabalin 100 mg capsule 100 mg PO BEDTIME 01/04/24 04/05/24 pregabalin 75 mg capsule 75 mg PO TID 01/04/24 04/05/24 prazosin 2 mg capsule 4 - 6 mg PO BEDTIME PRN Insomnia 03/07/24 04/05/24 ashwagandha extract 120 mg capsule 120 mg PO DAILY 03/08/24 04/05/24 oxcarbazepine 300 mg tablet 600 mg PO BEDTIME 03/08/24 04/05/24 methadone 10 mg/mL oral 120 mg PO DAILY 04/05/24 04/05/24 concentrate (Methadone Intensol) Previous Rx's ?Medication ?Instructions ?Recorded walker #1 ea 02/29/24 docusate sodium 100 mg capsule 100 mg PO BID 30 days #60 caps 04/06/24 enoxaparin 40 mg/0.4 mL 40 mg (0.4 mL) subcut Q24H 42 days 04/06/24 subcutaneous syringe #16.8 mL oxycodone 10 mg tablet 10 mg PO Q4H PRN Pain, 04/06/24 Moderate(Pain Scale 4-6) 7 days #42 tabs Allergies Allergy/AdvReac Type Severity Reaction Status Date / Time celecoxib [From Celebrex] Allergy Severe Hives Verified 04/11/24 13:25 NSAIDS (Non-Steroidal Allergy Severe RASH Verified 04/11/24 13:25 Anti-Inflamma [Nsaids] risperidone AdvReac Severe Angioedema Verified 04/11/24 13:25 acetaminophen [From Tylenol] AdvReac Mild Hives Verified 04/11/24 13:25 Review of Systems 2 Review of Systems: Yes all other systems are reviewed and are negative Constitutional: Constitutional: Reports as per [facility] Past Medical History Medical History Methadone use COVID-19 Septic arthritis Night terrors Osteoarthritis PTSD (post-traumatic stress disorder) Bipolar 1 disorder Tenosynovitis Rheumatoid arthritis Fibromyalgia Depression Anxiety Surgical History Hx of arthroscopy of right knee Hx of elbow surgery Hx of arthroscopy of left knee Social History Social History Household Members: Significant Other Housing: House Are you a primary toddler caregiver to a significant other at home: No Do you presently have visiting nurse or other home services: No Patient Tobacco Use Status: Former Tobacco user Substance Use Type: Marijuana Advance Directives: No Advance Directives Information Provided: No Do you have a plan to hurt others: No Plan service: No Current occupational status: unemployed Physical Exam ED Vital Signs: Vital Signs - 24 hr 04/11/24 13:22 04/11/24 16:06 Temperature 99.0 F 99.8 F Pulse Rate 86 69 Respiratory Rate 16 16 Blood Pressure 123/90 H 124/75 Pulse Oximetry 95 98 Oxygen Delivery Method Room Air Room Air BMI result Body Mass Index 33.3 Const General: cooperative, comfortable and no acute distress Orientation/consciousness: patient oriented x3 Limitations: no limitations HENMT Head: Yes normal to inspection, Yes normocephalic and Yes atraumatic Ears: hearing grossly normal bilaterally General nose exam: Normal external nose present Face and sinus: Yes normal facial exam Mouth: Normal oral and palatal mucosa present, oropharynx normal and moist mucous membranes Throat: Yes posterior oropharynx normal Eyes General: appearance normal, both eyes and all related structures Eyelids: Yes eyelids normal Conjunctivae: conjunctivae normal Sclerae: sclerae normal Pupils: Equal, round and reactive pupils present EOM: EOMs intact bilaterally Neck Neck: Yes normal visual inspection, Yes full ROM and Yes no lymphadenopathy Lymphatic: no lymphadenopathy noted Chest Chest palpation & inspection: normal inspection of the chest Resp Effort & Inspection: normal respiratory effort and able to speak in complete sentences Auscultation: clear to auscultation bilaterally, no crackles, no rales, no rhonchi and no wheezes Cardio Rate: regular rate Rhythm: regular rhythm Heart sounds: S1 normal heart sound present and S2 normal heart sound present GI Inspection: Yes normal to inspection Skin General skin exam: no rashes or lesions noted Trauma: no lacerations or abrasions Wounds: no wounds Neuro General: patient oriented x3 and moves all extremities Cranial nerves: Yes Equal, round and reactive pupils present Extrem Other: R knee anterior aspect there is a large surgical incision with dennis present, scant clear serosanguineous drainage noted from wound. No surrounding erythema or warmth. Mild ecchymosis noted. Compartments are soft. Strong DP pulse. No calf tenderness. General: Yes normal to inspection Right upper extremity: normal to inspection Left upper extremity: normal to inspection Right lower extremity: normal to inspection Left lower extremity: normal to inspection Course Reevaluation(s) Reevaluation #1: Ultrasound ordered and pending radiology report. Patient was medicated with oxycodone 10 mg by mouth in the department as this is her that she is taking for her knee. We will continue to closely monitor pending ultrasound report Time: 16:34 Reevaluation #2: US neg for DVT. Discussed with patient. Wound well healing, dressing changed by LARRY Quiroga. Pt stable for d/c. given return precautions. Medications Administered Discontinued Medications Generic Name Dose Route Start Last Admin Trade Name Freq PRN Reason Stop Dose Admin Oxycodone HCl 10 mg 04/11/24 15:57 04/11/24 16:05 Oxycodone Hcl Immed Release 5 Mg Tablet PO 04/11/24 15:58 10 mg ONCE ONE Administration Medical Decision Making Medical Decision Making [facility] Narrative: This is a 40-kajp-hcd-female, with a history of osteoarthritis with recent TKR performed on 04/05, who presents to the ER for wound check. Patient states that she has had increased pain, drainage from the wound. On arrival, vital signs within normal limits. She is speaking in full sentences under no acute distress. No chest pain, shortness of breath, fevers or body aches. Labs were obtained, she has no leukocytosis, stable H&H, chemistry revealing slight elevation in AST and ALT no previous on record for comparison. Orthopedic Ta- Sonja Montalvo PA-C assess patient, wound does not appear to be infected. Patient is still on Lovenox. DVT less likely however still a possibility, ultrasound will be ordered. Differential Diagnosis Differential Diagnoses: The differential diagnosis associated with the presentation includes cellulitis, TKA wound infection, wound dehiscence, DVT Lab Data [facility] Lab Attestation statement: I reviewed the patient's lab results. See [facility] 04/11/24 14:00 04/11/24 14:00 Labs: Lab Results 04/11/24 Range/Units 14:00 WBC 8.6 (4.8-10.8) X10*3/uL RBC 3.96 L (4.20-5.50) X10*6/uL Hgb 12.9 (12.0-16.0) g/dl Hct 37.5 (37.0-47.0) % MCV 94.7 (80.0-98.0) fL MCH 32.6 (27.0-33.0) pg MCHC 34.4 (31.0-35.0) g/dl RDW 12.4 (11.0-16.0) % Plt Count 325 D (160-400) X10*3/uL MPV 8.8 L (9.4-12.3) fL Immature Gran % (Auto) 0.7 H (0.0-0.4) % Neut % (Auto) 52.9 (45-73) % Lymph % (Auto) 34.7 (20-40) % [place] % (Auto) 9.5 (2-11) % Eos % (Auto) 2.0 (0-4) % Baso % (Auto) 0.2 (0-2) % Lymph # (Auto) 3.0 (1.2-4.9) X10*3/uL [place] # (Auto) 0.8 (0.1-1.2) X10*3/uL Eos # (Auto) 0.2 (0.0-0.4) X10*3/uL Baso # (Auto) 0.0 (0.0-0.2) X10*3/uL Abs Immat Gran (auto) 0.06 H (0.00-0.03) X10*3/uL Absolute Neuts (auto) 4.6 (2.0-8.3) x10*3/uL Absolute Nucleated RBC 0.000 (0.0-0.012) X10*3/uL Nucleated RBC % (auto) 0.0 (0.0-0.2) /100WBC Sodium 140 (135-145) mmol/L Potassium 3.5 (3.3-5.1) mmol/L Chloride 106 (96-108) mmol/L Carbon Dioxide 27 (22-29) mmol/L Anion Gap 11 L (12-20) BUN 10 (9-16) mg/dL Creatinine 0.68 (0.5-1.4) mg/dL Estim Creat Clear Calc 118.1 Estimated GFR > 60 Random Glucose 84 (60-115) mg/dL Calcium 8.6 (8.4-10.2) mg/dL Total Bilirubin 0.5 (0.0-1.0) mg/dL Direct Bilirubin 0.2 (0.0-0.5) mg/dL AST 45 H (5-31) U/L ALT 44 H (0-31) U/L Alkaline Phosphatase 85 (39-117) U/L Total Protein 7.8 (6.5-8.0) g/dL Albumin 3.9 (3.5-5.0) g/dL Radiology Impression Discussion of test interpretation with radiology: I have reviewed the radiologist's reading. Radiologist Impression: XR/XR knee RT 3V IMPRESSION: 1. Right knee arthroplasty without complication. 2. Joint effusion in the suprapatellar bursa. 3. Increasing anteromedial soft tissue swelling when compared with 04/05/2024. Electronically signed by: Osman Jimenez MD 04/11/2024 02:29 PM EST RP Dictated By: Osman Jimenez MD US/US venous duplex LE RT IMPRESSION: No evidence of deep venous thrombosis involving the right lower extremity. Electronically signed by: Osman Jimenez MD 04/11/2024 04:46 PM EST RP Discharge Plan Discharge Clinical Impression: Encounter for post surgical wound check, Elevated liver enzymes Patient Disposition: Home, Self-Care Instructions: Acute Wounds (ED) Additional Instructions: You were seen in the emergency department due to a wound check. Your blood work was reassuring. You were seen by the orthopedic PAs and your surgical site appears to be well healing. Please continue all at home medications as prescribed. Follow up with the orthopedist as scheduled. Your US was reviewed with no blood clot noted. If any new or worsening symptoms occur including but not limited to severe chest pain, shortness of breath, woresning redness, swelling, pain, please seek emergent care. Of note, your liver enzymes were elevated, please follow up with your PCP to have these re-evaluated. Prescriptions: No Action (DME) walker Misc See Rx Instructions .MEDSUPPLY Qty: 1 0RF Rx Instructions: Folding Front wheeled walker prazosin 2 mg capsule 4 - 6 mg PO BEDTIME PRN (Reason: Insomnia) Patient Comments: night terrors oxcarbazepine 300 mg Tablet 600 mg PO BEDTIME ashwagandha extract 120 mg Capsule 120 mg PO DAILY methadone [Methadone Intensol] 10 mg/mL Concentrate 120 mg PO DAILY enoxaparin 40 mg/0.4 mL Syringe 40 mg subcut Q24H 42 Days Qty: 16.8 0RF oxycodone 10 mg tablet 10 mg PO Q4H PRN (Reason: Pain, Moderate(Pain Scale 4-6)) 7 Days Qty: 42 0RF Rx Instructions: Partial Fill upon patient request. docusate sodium 100 mg Capsule 100 mg PO BID 30 Days Qty: 60 0RF oxcarbazepine 300 mg tablet 300 mg PO QAM alprazolam 1 mg tablet 1 mg PO TID pregabalin 100 mg capsule 100 mg PO BEDTIME pregabalin 75 mg capsule 75 mg PO TID olanzapine 7.5 mg tablet 7.5 mg PO BEDTIME Interventions: ED Discharge Assessment Last Done: 04/11/24 17:06 Discharge Date/Time: 04/11/24 17:07 Print Language: Spanish
[2024-04-11 14:05] LABS: MANUAL DIFF FLAG NO
[2024-04-11 14:07] LABS: Basophils Percent Auto 0.2 % (0-2); Eosinophils Absolute Auto 0.2 X10*3/uL (0.0-0.4); Hematocrit 37.5 % (37.0-47.0); Hemoglobin 12.9 g/dl (12.0-16.0); Imm Gran Abs Auto 0.06 X10*3/uL (0.00-0.03); Imm Gran Pct Auto 0.7 % (0.0-0.4); Lymphocytes Percent Auto 34.7 % (20-40); Mean Corpuscular HGB Conc 34.4 g/dl (31.0-35.0); Mean Corpuscular Hemoglobin 32.6 pg (27.0-33.0); Mean Corpuscular Volume 94.7 fL (80.0-98.0); Mean Platelet Volume 8.8 fL (9.4-12.3); Monocytes Absolute Auto 0.8 X10*3/uL (0.1-1.2); Monocytes Percent Auto 9.5 % (2-11); Neutrophils Absolute Auto 4.6 x10*3/uL (2.0-8.3); Neutrophils Percent Auto 52.9 % (45-73); Platelet Count 325 X10*3/uL (160-400); Red Blood Count 3.96 X10*6/uL (4.20-5.50); Red Cell Distribution Width 12.4 % (11.0-16.0); White Blood Count 8.6 X10*3/uL (4.8-10.8)
[2024-04-11 14:24] LABS: Alanine Aminotransferase 44 U/L (0-31); Albumin Level 3.9 g/dL (3.5-5.0); Alkaline Phosphatase 85 U/L (39-117); Anion Gap 11 (12-20); Aspartate Amino Transferase 45 U/L (5-31); Bilirubin Direct 0.2 mg/dL (0.0-0.5); Bilirubin Total 0.5 mg/dL (0.0-1.0); Blood Urea Nitrogen 10 mg/dL (9-16); Calcium 8.6 mg/dL (8.4-10.2); Carbon Dioxide 27 mmol/L (22-29); Chloride 106 mmol/L (96-108); Creatinine Clr Calc Pharmacy 118.1; Estimated Glomerular Filt Rate > 60; Glucose Random 84 mg/dL (60-115); Potassium 3.5 mmol/L (3.3-5.1); Sodium 140 mmol/L (135-145); Total Protein 7.8 g/dL (6.5-8.0)
[2024-04-11] MEDS: oxyCODONE HCl Immed Release 5 MG TABLET 10 MG PO (16:05)
[2024-04-11 16:06] VITALS: BP 124/75; PULSE 69; RESP 16; TEMP 37.7; O2SAT 98
[2024-04-11 17:06] VITALS: BP 123/70; PULSE 66; RESP 14; TEMP 37.3; O2SAT 98
== END 2024-04-11 17:07 | disposition home or self-care (01) ==
PROVIDERS: Physician Assistant Medical; Emergency Provider Emergency Medicine; PCP Internal Medicine
DX: R60.0 Localized edema (principal); R79.89 Other specified abnormal findings of blood chemistry; M25.561 Pain in right knee; Z79.899 Other long term (current) drug therapy; Z48.00 Encounter for change or removal of nonsurgical wound dressing
CPT/HCPCS: 36415; 73562; 80048; 80076; 85025; 93971; 99283; 99284

== ENCOUNTER → 2024-04-11 13:27 | Outpatient (BNV) | payer OTHER, SELFPAY | PROVIDERS: Emergency Provider Emergency Medicine; PCP Internal Medicine; Visit Provider Radiology Diagnostic Radiology | DX: M25.461 Effusion, right knee (principal); Z96.651 Presence of right artificial knee joint | CPT/HCPCS: 73562; 93971 ==

== ENCOUNTER 2024-04-21 12:44 | Outpatient (AMB) | payer OTHER, SELFPAY ==
--- NOTE | 2024-04-21 12:50 | MHC.OFFVIS ---
Intake Visit Reasons: TM YARON: 2WK PO: R TKA w/NE 04/05/24 Intake Note: Alex is a 38 year old female who presents today for a post op appointment s/p Right TKA 04/05/24 NE. Patient reports she is in a lot of pain and she feels a throbbing sensation near the alaniz. Allergies celecoxib [From Celebrex] Allergy (Severe, Verified 04/21/24 13:01) Hives NSAIDS (Non-Steroidal Anti-Inflamma [Nsaids] Allergy (Severe, Verified 04/21/24 13:01) RASH risperidone Adverse Reaction (Severe, Verified 04/21/24 13:01) Angioedema acetaminophen [From Tylenol] Adverse Reaction (Mild, Verified 04/21/24 13:01) Hives HPI HPI TM YARON: 2WK PO: R TKA w/NE 04/05/24: Details: 38-year-old female who presents in the office today for a 16-day status post right total knee arthroplasty, which was performed on 04/05/[address] Buchanan. The patient presented to the ED on 04/11/24 due to increased pain, edema, and drainage from her surgical incision site. X-rays of the right knee and ultrasound of the right lower extremity were obtained. The surgical site was noted to be well healed and was recommended to continue prescribed medications at home.? While in the office today, the patient reports severe pain in the right knee. She mentions experiencing a throbbing sensation near the right alaniz region. PFSH Medical History Methadone use COVID-19 Septic arthritis Night terrors Osteoarthritis PTSD (post-traumatic stress disorder) Bipolar 1 disorder Tenosynovitis Rheumatoid arthritis Fibromyalgia Depression Anxiety Surgical History Hx of arthroscopy of right knee Hx of elbow surgery Hx of arthroscopy of left knee Social History Household Members: Significant Other Housing: House Are you a primary care consultant to a significant other at home: No Do you presently have visiting nurse or other home services: No Patient Tobacco Use Status: Former Tobacco user Substance Use Type: Marijuana service: No Current occupational status: unemployed Review of Systems Const All systems reviewed & are unremarkable except as noted in HPI and below Physical Exam Const General: cooperative, healthy appearing and no acute distress Resp Effort & Inspection: normal respiratory effort and able to speak in complete sentences Cardio Rate: regular rate Peripheral pulses: Peripheral pulses 2+ throughout GI Palpation (GI): Soft to palpation Skin Lesions: no lesions Rashes: no rashes Extrem Other: Right knee: Incision site is clean, dry, and intact. Alondra intact. No surrounding erythema or drainage. No signs of infection. Poor active quad function. ROM passively is 0-90 degrees. NVI. Assessment & Plan Assessment & Plan (1) Status post total knee replacement, right: Code(s): Z96.651 - Presence of right artificial knee joint Category: Surgical (2) Osteoarthritis of right knee: Code(s): M17.11 - Unilateral primary osteoarthritis, right knee Category: Medical Plan Ms. Rodriguez is a 38-year-old female who presents in the office today for a 16 days status post right total knee arthroplasty, which was performed on 04/05/[address] Buchanan. The patient presented to the ED on 04/11/24 due to increased pain,edema and drainage from her surgical incision site. X-rays of the right knee and ultrasound of the right lower extremity were obtained. The surgical site was noted to be well healing and was recommended to continue prescribed medications at home. While in the office today, the patient reports severe pain in the right knee. She mentions experiencing a throbbing sensation near the right alaniz region. Alondra were removed, and steri-strips were applied. I would like the patient to follow-up in two weeks with Melissa POWELL while Dr. Buchanan is in the office to evaluate the quad function and quad tendon. She has her first physical therapy appointment set for 04/25/24 at 1:00 PM EST in which she will attend. She will keep her six week follow-up with Dr. Buchanan on 05/12/23. Follow-up will be in 2 weeks with Melissa POWELL, or sooner if needed. Patient Instructions: Scribed by Leona Camarena medical or surgical instrument maker, for Karina Ashby PA-C on 04/21/24 at 01:19 pm EST. Coding Level of Care Code Global (07966) Diagnoses Status post total knee replacement, right Z96.651 Osteoarthritis of right knee M17.11
== END 2024-04-21 13:23 | disposition home or self-care (01) ==
PROVIDERS: PCP Internal Medicine; Visit Provider Physician Assistant
DX: Z96.651 Presence of right artificial knee joint (principal); M17.11 Unilateral primary osteoarthritis, right knee
CPT/HCPCS: 99024

== ENCOUNTER → 2024-04-21 12:44 | Outpatient (BNVA) | payer OTHER, SELFPAY | PROVIDERS: PCP Internal Medicine; Visit Provider Physician Assistant | DX: M25.561 Pain in right knee (principal); Z47.1 Aftercare following joint replacement surgery; Z96.651 Presence of right artificial knee joint | CPT/HCPCS: 99212 ==

== ENCOUNTER 2024-05-05 14:46 | Outpatient (AMB) | payer OTHER, SELFPAY ==
--- NOTE | 2024-05-05 14:53 | MHC.OFFVIS ---
Vital Signs 05/05/24 15:04 Height 5 ft 4 in Weight 194 lb BMI 33.3 Intake Visit Reasons: 2WK PO: R TKA w/NE 04/05/24-eval quad tendon Allergies celecoxib [From Celebrex] Allergy (Severe, Verified 04/21/24 13:01) Hives NSAIDS (Non-Steroidal Anti-Inflamma [Nsaids] Allergy (Severe, Verified 04/21/24 13:01) RASH risperidone Adverse Reaction (Severe, Verified 04/21/24 13:01) Angioedema acetaminophen [From Tylenol] Adverse Reaction (Mild, Verified 04/21/24 13:01) Hives HPI HPI 2WK PO: R TKA w/NE 04/05/24-eval quad tendon: Details: 38-year-old female returns to the office today 4 weeks status post right total knee arthroplasty with Dr. Buchanan. She states she has been doing well working with physical therapy and was even using her cane yesterday but feels she over did it yesterday and is having worsened pain today. She is ambulating with a walker today. FORMERLY [facility] Medical History Methadone use COVID-19 Septic arthritis Night terrors Osteoarthritis PTSD (post-traumatic stress disorder) Bipolar 1 disorder Tenosynovitis Rheumatoid arthritis Fibromyalgia Depression Anxiety Surgical History Hx of arthroscopy of right knee Hx of elbow surgery Hx of arthroscopy of left knee Social History Household Members: Significant Other Housing: House Are you a primary career and transition teacher to a significant other at home: No Do you presently have visiting nurse or other home services: No Patient Tobacco Use Status: Former Tobacco user Substance Use Type: Marijuana service: No Current occupational status: unemployed Review of Systems Const All systems reviewed & are unremarkable except as noted in HPI and below Physical Exam Extrem Other: Right knee incision well healed. No erythema no joint effusion. She is able to perform a straight leg raise and can bend at 95 degrees flexion. Calf supple nontender neurovascularly intact. Assessment & Plan Assessment & Plan (1) Status post total knee replacement, right: Code(s): Z96.651 - Presence of right artificial knee joint Category: Surgical Plan: Dr. Buchanan was available to see the patient with me today. She will continue working with physical therapy to improve her quad function and maintain her range of motion. Gait mechanics. Transition to a cane as tolerated. She will follow up in [address] Buchanan to resume her 6 week postop joint treatment plan with Dr. Buchanan. Coding Level of Care Code Global (09428) Diagnoses Status post total knee replacement, right Z96.651
[2024-05-05 15:04] VITALS: BMI 33.3
== END 2024-05-05 15:05 | disposition home or self-care (01) ==
PROVIDERS: PCP Internal Medicine; Visit Provider Physician Assistant
DX: Z96.651 Presence of right artificial knee joint (principal)
CPT/HCPCS: 99024

== ENCOUNTER → 2024-05-05 14:46 | Outpatient (BNVA) | payer OTHER, SELFPAY | PROVIDERS: PCP Internal Medicine; Visit Provider Physician Assistant | DX: Z47.1 Aftercare following joint replacement surgery (principal); Z96.651 Presence of right artificial knee joint | CPT/HCPCS: 99212 ==

== ENCOUNTER 2024-05-23 07:51 | Outpatient (REF) | payer OTHER, SELFPAY ==
--- NOTE | ~2024-05-23 | XR_ITS ---
EXAMINATION: XR KNEE 3 VIEWS RIGHT HISTORY: M25.561 - Pain in right knee COMPARISON: Comparison is made with the prior examination dated 04/11/2024. FINDINGS: Standing AP views of the bilateral knees and additional lateral and sunrise patellar views of the right knee are submitted. The patient is again noted to be status post total knee arthroplasty. The orthopedic elements are in anatomic alignment. There is no radiographic evidence of loosening. There is no fracture or dislocation. There is a trace suprapatellar joint effusion. XR/XR knee RT 3V IMPRESSION: Status post right total knee arthroplasty. Electronically signed by: Byron Rodarte MD 05/24/2024 08:27 AM ELSIE
--- OUTSIDE RECORDS SUMMARY | 2024-05-23 07:54 | XMS_ITS | Clinical Summary ---
Author Organization [facility] ity Address [address] [place] [address] Care Team Providers Care Director Of Corporate Communications Name Role Phone Gretta Lanier DO Primary Care Provider Surgical History Surgery Date Site/Laterality Comments KNEE SURGERY PROCEDURE: HISTORICAL KNEE SURGERY Family History Medical History Relation Name Comments Other: fibromyalgia Father Diabetes Maternal Grandmother Relation Name Status Comments Father Alive Maternal Grandmother Mother Alive Social History Tobacco Use Types Packs/Day Years Used Date Smoking Tobacco: Former Cigarettes Q uit: 06/07/2008 Alcohol Use Standard Drinks/Week Comments No 0 (1 standard drink = 0.6 oz pur e alcohol) Sex and Gender Information Value Date Recorded Sex Assigned at Not on file Gender Identity Not on file Sexual Orientation Not on file Obstetrics History Plan of Treatment Health Maintenance Due Date Last Done Comments Breast Cancer Screening 1983 DTaP,Tdap,and Td Vaccines (1 - Tdap) 12/11/2002 Hepatitis B Vaccines (1 of 3 - 19+ 3-dose series) 12/11/2002 Cervical Cancer Screening: P ap Smear 12/11/2004 COVID-19 Vaccine (2023-2 5 season) 2023 Influenza Vaccine (#1) 2023 HIB Vaccines Aged Out No longer eligi ble based on patient's age to complete this topic HPV Vaccines Aged Out No longer eligi ble based on patient's age to complete this topic Hepatitis A Vaccines Aged Out No long er eligible based on patient's age to complete this topic IPV Vaccines Aged Out No longer eligi ble based on patient's age to complete this topic MMR Vaccines Aged Out No longer eligi ble based on patient's age to complete this topic Meningococcal ACWY Vaccine Aged Out N o longer eligible based on patient's age to complete this topic Pneumococcal Vaccine: Pediat rics (0 to 5 Years) and At-Risk Patients (6 to 64 Years) Aged Out No longer eligible b ased on patient's age to complete this topic RSV Immunization Patients Un vicente 20 months Aged Out No longer eligible b ased on patient's age to complete this topic Varicella Vaccines Aged Out No longer eligible based on patient's age to complete this topic Care Teams Director Of Corporate Communications Relationship Specialty Start Date End Date Gretta Lanier DO [address] [place] [address] [place] [address] PCP - General 07/08/11
--- OUTSIDE RECORDS SUMMARY | 2024-05-23 07:54 | XMS_ITS | Clinical Summary ---
Author Organization [facility] Address [address] [place] [address] Care Team Providers Care Apple Peeler Operator Name Role Phone Unavailable Primary Care Provider Unavailabl e Allergies Active Allergy Reactions Criticality Noted Date Comments Nsaids Itching 02/07/2015 Medications Medication Sig Dispensed Refills Start Date End Date Status ClonazePAM (KLONOPIN PO) Take by mouth. 0 Active ALPRAZolam (XANAX PO) Take by mouth. 0 Active OXcarbazepine (TRILEPTAL PO) Take 300 mg by mouth 2 (two) times a day. 0 Active prazosin (MINIPRESS) 2 MG capsule Take 2 mg by mouth every night at bedtime. 0 Active Immunizations Name Administration Dates Next Due Tdap 02/07/2015 Social History Tobacco Use Types Packs/Day Years Used Date Smoking Tobacco: Light Smoker Tobacco Cessation:Ready to Q uit: No Alcohol Use Standard Drinks/Week Comments Yes 0 (1 standard drink = 0.6 oz pur e alcohol) occasional Sex and Gender Information Value Date Recorded Sex Assigned at Not on file Gender Identity Not on file Sexual Orientation Not on file Last Filed Vital Signs Vital Sign Reading Time Taken Comments Blood Pressure 131/76 02/07/2015 12:46 PM EDT Pulse 76 02/07/2015 12:46 PM EDT Temperature 36.8 ??C (98.2 ??F) 02/07/2015 12:46 PM E DT Respiratory Rate 20 02/07/2015 12:46 PM EDT Oxygen Saturation 97% 02/07/2015 12:46 PM EDT Inhaled Oxygen Concentration - - Weight 56.7 kg (125 lb) 02/07/2015 10:55 AM EDT Height 165.1 cm (5' 5 ) 02/07/2015 10:55 AM EDT Body Mass Index 20.8 02/07/2015 10:55 AM EDT Plan of Treatment Health Maintenance Due Date Last Done Comments Hepatitis B Vaccines (1 of 3 - 3-dose series) 1983 Hepatitis C Screening 1983 COVID-19 Vaccine (#1) 06/13/1984 Pneumococcal Vaccine (1 of 2 - PCV) 12/11/1989 Depression Screening 1995 Preventative Health Evaluation 12/11/2001 Cervical Cancer Screening (P ap Smear) 12/11/2004 Influenza Vaccine (#1) 2023 DTap / Tdap / Td (2 - Td or Tdap) 02/07/2025 015 RSV Ped < 20 months Aged Out No longe r eligible based on patient's age to complete this topic
== END 2024-05-23 07:52 | disposition home or self-care (01) ==
LOC: HO.HOSX 07:51
PROVIDERS: Visit Provider Orthopaedic Surgery
DX: M25.562 Pain in left knee (principal); M25.561 Pain in right knee; Z96.651 Presence of right artificial knee joint
CPT/HCPCS: 73562; 99212

== ENCOUNTER 2024-05-23 14:30 | Outpatient (AMB) | payer OTHER, SELFPAY ==
--- NOTE | 2024-05-23 14:39 | A.OFFVIS_ITS ---
Intake Visit Reasons: 6 WK PO- Right TKA w/NE 04/05/24 Intake Note: Alex is a 38 year old female who presents today for post operative appointment 6 weeks s/p Right TKA 04/05/24. Patient reports that she is doing great, she is walking at home without her walker but uses it when out of the house. She is doing her exercises at home. Denies pain and has no concerns She would like to begin outpatient PT at [facility] Allergies celecoxib [From Celebrex] Allergy (Severe, Verified 04/21/24 13:01) Hives NSAIDS (Non-Steroidal Anti-Inflamma [Nsaids] Allergy (Severe, Verified 04/21/24 13:01) RASH risperidone Adverse Reaction (Severe, Verified 04/21/24 13:01) Angioedema acetaminophen [From Tylenol] Adverse Reaction (Mild, Verified 04/21/24 13:01) Hives HPI HPI 6 WK PO- Right TKA w/NE 04/05/24: Details: Alex is a 38 year old female who presents today for post operative appointment 6 weeks s/p Right TKA 04/05/24. Patient reports that she is doing great, she is walking at home without her walker but uses it when out of the house. She is doing her exercises at home. Denies pain and has no concerns She would like to begin outpatient PT at [facility] Medical History Methadone use COVID-19 Septic arthritis Night terrors Osteoarthritis PTSD (post-traumatic stress disorder) Bipolar 1 disorder Tenosynovitis Rheumatoid arthritis Fibromyalgia Depression Anxiety Surgical History Hx of arthroscopy of right knee Hx of elbow surgery Hx of arthroscopy of left knee Social History Household Members: Significant Other Housing: House Are you a primary healthcare economics manager to a significant other at home: No Do you presently have visiting nurse or other home services: No Patient Tobacco Use Status: Former Tobacco user Substance Use Type: Marijuana service: No Current occupational status: unemployed Physical Exam Extrem Other: inc c/d/i 0-100 Results Reviewed Results Reviewed: Right total knee arthroplasty in expected post operative position with no hardware complications or evidence of loosening Assessment & Plan Assessment & Plan (1) Status post total knee replacement, right: Code(s): Z96.651 - Presence of right artificial knee joint Category: Surgical Plan: Doing well but still not doing outpatient PT. she promised me she would start. Follow up 6 weeks Orders: Orders XR knee LT 1V Today M25.569 - Pain in unspecified knee XR knee RT 3V Today M25.561 - Pain in right knee Coding Level of Care Code Global (27977) Diagnoses Status post total knee replacement, right Z96.651
--- OUTSIDE RECORDS SUMMARY | 2024-05-23 18:55 | XMS_ITS | Clinical Summary ---
Author Organization [facility] ity Address [address] [place] [address] Care Team Providers Care Intelligence Agent Name Role Phone Gretta Lanier DO Primary [...] age to complete this topic Care Teams Intelligence Agent Relationship Specialty Start Date End Date Gretta Lanier DO [address] [place] [address] [place] [address] PCP - General 07/08/11
--- OUTSIDE RECORDS SUMMARY | 2024-05-23 18:55 | XMS_ITS | Clinical Summary ---
Author Organization [facility] Address [address] [place] [address] Care Team Providers Care Helminthology Teacher Name Role Phone Unavailable Primary Care Provider [...]
== END 2024-05-23 14:55 | disposition home or self-care (01) ==
PROVIDERS: PCP Internal Medicine; Visit Provider Orthopaedic Surgery
DX: Z96.651 Presence of right artificial knee joint (principal)
CPT/HCPCS: 99024

== ENCOUNTER → 2024-05-23 14:31 | Outpatient (BNV) | payer OTHER, SELFPAY | PROVIDERS: Visit Provider Radiology Diagnostic Radiology | DX: M25.561 Pain in right knee (principal) | CPT/HCPCS: 73562 ==

== ENCOUNTER 2024-07-14 14:39 | Outpatient (AMB) | payer OTHER, SELFPAY ==
--- NOTE | 2024-07-14 14:46 | A.OFFVIS_ITS ---
Intake Visit Reasons: PO- Right TKA w/NE 04/05/24 Intake Note: Alex is a 38 year old female who presents today for a follow up s/p right TKA, DOS 04/05/24 NE. Patient reports she is doing much better and states she has been doing PT which she states is helping a lot. Allergies celecoxib [From Celebrex] Allergy (Severe, Verified 07/14/24 14:51) Hives NSAIDS (Non-Steroidal Anti-Inflamma [Nsaids] Allergy (Severe, Verified 07/14/24 14:51) RASH risperidone Adverse Reaction (Severe, Verified 07/14/24 14:51) Angioedema acetaminophen [From Tylenol] Adverse Reaction (Mild, Verified 07/14/24 14:51) Hives Medication List - Last Reconciled 07/14/24 by Melissa Montalvo PA-C alprazolam 1 mg PO TID docusate sodium 100 mg PO BID 30 days enoxaparin 40 mg (0.4 mL) subcut Q24H 42 days methadone (Methadone Intensol) 120 mg PO DAILY oxcarbazepine 600 mg PO BEDTIME oxcarbazepine 300 mg PO QAM prazosin 4 - 6 mg PO BEDTIME PRN pregabalin 100 mg PO BEDTIME pregabalin 75 mg PO TID walker Folding Front wheeled walker HPI HPI PO- Right TKA w/NE 04/05/24: Details: 38-year-old female returns to the office today 3 months status post right total knee arthroplasty with Dr. Buchanan on 04/05/2024. She is doing well working with physical therapy. She states she pulled her calf muscle and has some d iscomfort from the stairs at therapy. Overall no concerns today. PFSH Medical History Methadone use COVID-19 Septic arthritis Night terrors Osteoarthritis PTSD (post-traumatic stress disorder) Bipolar 1 disorder Tenosynovitis Rheumatoid arthritis Fibromyalgia Depression Anxiety Surgical History Hx of arthroscopy of right knee Hx of elbow surgery Hx of arthroscopy of left knee Social History Household Members: Significant Other Housing: House Are you a primary residential child care counselor to a significant other at home: No Do you presently have visiting nurse or other home services: No Patient Tobacco Use Status: Former Tobacco user Substance Use Type: Marijuana service: No Current occupational status: unemployed Review of Systems Const All systems reviewed & are unremarkable except as noted in HPI and below Physical Exam Extrem Other: Right knee incision is well healed. No erythema or effusion. She has full range of motion and good activation of her quad. Calf supple and nontender neurovascularly intact. Assessment & Plan Assessment & Plan (1) Status post total knee replacement, right: Code(s): Z96.651 - Presence of right artificial knee joint Category: Surgical Plan: She will continue working with physical therapy to improve her strength and gait mechanics. Increase activities as tolerated. She will see us back in [address] Buchanan, sooner if needed. Coding Level of Care Code Est Pt Level 3 (27364) Complex EM visit Add On G2211 Diagnoses Status post total knee replacement, right Z96.651
== END 2024-07-14 15:17 | disposition home or self-care (01) ==
LOC: HO.HOS 14:39
PROVIDERS: Visit Provider Physician Assistant
DX: Z47.89 Encounter for other orthopedic aftercare (principal); Z96.651 Presence of right artificial knee joint
CPT/HCPCS: 99213; G2211

== ENCOUNTER → 2024-07-14 14:39 | Outpatient (BNVA) | payer OTHER, SELFPAY | PROVIDERS: Visit Provider Physician Assistant | DX: Z96.651 Presence of right artificial knee joint (principal) | CPT/HCPCS: 99212 ==

== ENCOUNTER 2025-01-16 13:03 | Outpatient (REF) | payer OTHER, SELFPAY ==
--- NOTE | ~2025-01-16 | XR_ITS ---
EXAMINATION: XR KNEE, RIGHT CLINICAL INFORMATION: M25.561 - Pain in right knee COMPARISON: May 23, 2024 TECHNIQUE: AP standing bilateral, sunrise, and lateral views of the right knee. FINDINGS: Changes from total knee arthroplasty are again noted. Hardware is aligned. No abnormal lucencies are evident at bone metal interfaces. No joint effusion is present. There is increasing heterotopic ossification lateral to patella, possibly within the lateral retinaculum. XR/XR knee RT 3V IMPRESSION: Stable knee arthroplasty, right Electronically signed by: Blaze Perez MD 01/16/2025 01:55 PM EDT
== END 2025-01-16 13:04 | disposition home or self-care (01) ==
LOC: HO.HOSX 13:03
PROVIDERS: Visit Provider Orthopaedic Surgery
DX: M17.0 Bilateral primary osteoarthritis of knee (principal); Z96.651 Presence of right artificial knee joint
CPT/HCPCS: 73562; 99212

== ENCOUNTER → 2025-01-16 13:38 | Outpatient (BNV) | payer OTHER, SELFPAY | PROVIDERS: Visit Provider Radiology Diagnostic Radiology | DX: M25.561 Pain in right knee (principal); Z96.651 Presence of right artificial knee joint | CPT/HCPCS: 73562 ==

== ENCOUNTER 2025-01-16 13:41 | Outpatient (AMB) | payer OTHER, SELFPAY ==
--- NOTE | 2025-01-16 13:48 | MHC.OFFVIS ---
Intake Visit Reasons: OV- Right TKA w/NE 04/05/24 Intake Note: Alex is a 38 year old female who presents today for a follow up s/p right TKA, DOS 04/05/24 NE. States she is doing great and is happy with result from surgery. Allergies celecoxib (From Celebrex) Allergy (Severe, Verified 01/16/25 13:52) Hives NSAIDS (Non-Steroidal Anti-Inflamma (Nsaids) Allergy (Severe, Verified 01/16/25 13:52) RASH risperidone Adverse Reaction (Severe, Verified 01/16/25 13:52) Angioedema acetaminophen (From Tylenol) Adverse Reaction (Mild, Verified 01/16/25 13:52) Hives HPI HPI OV- Right TKA w/NE 04/05/24: Details: Alex is a 38 year old female who presents today for a follow up s/p right TKA, DOS 04/05/24 NE. States she is doing great and is happy with result from surgery. She is losing weight and working on her fitness. She is complaining of her left knee. She states this is the only thing keeping her from being able to walk pain-free. FORMERLY [facility] Medical History Methadone use COVID-19 Septic arthritis Night terrors Osteoarthritis PTSD (post-traumatic stress disorder) Bipolar 1 disorder Tenosynovitis Rheumatoid arthritis Fibromyalgia Depression Anxiety Surgical History Hx of arthroscopy of right knee Hx of elbow surgery Hx of arthroscopy of left knee Social History Household Members: Significant Other Housing: House Are you a primary direct care staffer to a significant other at home: No Do you presently have visiting nurse or other home services: No Patient Tobacco Use Status: Former Tobacco user Substance Use Type: Marijuana service: No Current occupational status: unemployed Physical Exam Extrem Other: Right knee withwell healed incision No effusion 0-130 deg motion and stable to v/v stress Left knee with varus alignment, medial joint line TTP and + gait antalgia. Results Reviewed Results Reviewed: I personally reviewed relevant radiographs. RIght total knee arthroplasty in expected post operative position with no hardware complications or evidence of loosening Left knee with varus pattern severe DJD Assessment & Plan Assessment & Plan (1) Status post total knee replacement, right: Code(s): Z96.651 - Presence of right artificial knee joint Category: Surgical Plan: Kelvin right knee is doing very well. She feels good and her motion and strength are excellent. COntinue activity as tolerated and may follow up as needed. (2) Bilateral primary osteoarthritis of knee: Code(s): M17.0 - Bilateral primary osteoarthritis of knee Category: Medical Plan: Kelvin primary complaint is left knee pain. She has known left knee OA and has been dealing with this for decades. She reports a history of and multiple injections in bilateral knees. She is young and we have had these discussions previously but she is limited by her left knee. She has done extremely well after her right TKA and would like to proceed forward with left TKA> I think this is reasonable. She is young and active and her knee arthritis with associated varus deformity prevents her from being active and causes constant pain. She understands the pre operative process and I reminded her of the risks and alternatives to surgery. She would like to proceed forward so we will begin with the clearance process. I will have Jacqueline chat with her and see her back prior to surgery. Orders: Orders XR knee RT 3V 01/16/25 M25.561 - Pain in right knee Coding Level of Care Code Est Pt Level 4 (58853) Diagnoses Status post total knee replacement, right Z96.651 Bilateral primary osteoarthritis of knee M17.0
== END 2025-01-16 16:26 | disposition home or self-care (01) ==
LOC: HO.HOS 13:41
PROVIDERS: Visit Provider Orthopaedic Surgery
DX: M17.0 Bilateral primary osteoarthritis of knee (principal); Z96.651 Presence of right artificial knee joint
CPT/HCPCS: 99214

== ENCOUNTER → 2025-04-06 10:40 | Outpatient (BNVA) | payer OTHER, SELFPAY | DX: Z01.818 Encounter for other preprocedural examination (principal) ==

== ENCOUNTER 2025-04-24 15:11 | Outpatient (AMB) | payer OTHER, SELFPAY ==
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
--- OUTSIDE RECORDS SUMMARY | 2025-04-24 17:24 | XMS_ITS | Clinical Summary ---
Author Organization [facility] ity Address [address] [place] [address] Care Team Providers Care Ordnance Equipment Worker Name Role Phone Gretta Lanier DO Primary Care Provider Surgical History Surgery Date Site/Laterality Comments KNEE SURGERY PROCEDURE: HISTORICAL KNEE SURGERY Family History Medical History Relation Name Comments Other: fibromyalgia Father Diabetes Maternal Grandmother Relation Name Status Comments Father Alive Maternal Grandmother Mother Alive Social History Tobacco Use Types Packs/Day Years Used Date Smoking Tobacco: Former Cigarettes 0 Q uit: 06/07/2008 Alcohol Use Standard Drinks/Week Comments No 0 (1 standard drink = 0.6 oz pur e alcohol) Comments Unknown Sex and Gender Information Value Date Recorded Sex Assigned at Not on file Legal Sex Female 11:41 PM EST Gender Identity Not on file Sexual Orientation Not on file Plan of Treatment Health Maintenance Due Date Last Done Comments Breast Cancer Screening 1983 DTaP,Tdap,and Td Vaccines (1 - Tdap) 12/11/2002 Hepatitis B Vaccines (1 of 3 - 19+ 3-dose series) 12/11/2002 Cervical Cancer Screening: P ap Smear 12/11/2004 HPV Vaccines (1 - 3-dose SCD M series) 12/11/2010 Depression Screening 04/27/2024 COVID-19 Vaccine ( - 2024-2 6 season) 2024 Influenza Vaccine (#1) 2024 RSV Immunization Adult Patie nts (1 - 1-dose 75+ series) 12/11/2058 HIB Vaccines Aged Out No longer eligi [...] patient's age to complete this topic Meningococcal B Vaccine Aged Out No l onger eligible based on patient's age to complete this topic Pneumococcal Vaccine: Pediat rics (0 to 5 Years) and At-Risk Patients (6 to 49 Years) Aged Out No longer eligible b ased on patient's age to complete this topic RSV Immunization Patients Un vicente 20 months Aged Out No longer eligible b ased on patient's age to complete this topic Varicella Vaccines Aged Out No longer eligible based on patient's age to complete this topic Care Teams Ordnance Equipment Worker Relationship Specialty Start Date End Date Gretta Lanier DO [address] [place] [address] [place] [address] NE PCP - General 07/08/11
--- OUTSIDE RECORDS SUMMARY | 2025-04-24 17:24 | XMS_ITS | Clinical Summary ---
Author Organization [facility] Prior to 09/24/24 Address [address] [place] [address] Care Team Providers Care Er Medical Technician Name Role Phone Unavailable Primary Care Provider [...] 76 02/07/2015 12:46 PM EDT Temperature 36.8 C (98.2 F) 02/07/2015 12:46 PM EDT Respiratory Rate 20 02/07/2015 12:46 PM EDT [...] (P ap Smear) 12/11/2004 Influenza Vaccine (#1) 2024 DTap / Tdap / Td (2 - Td or Tdap) 02/07/2025 015 RSV Ped < 20 months Aged Out No longe r eligible based on patient's age to complete this topic
== END 2025-04-24 15:57 | disposition home or self-care (01) ==
LOC: HO.HOS 15:12
PROVIDERS: Visit Provider Physician Assistant
DX: M17.12 Unilateral primary osteoarthritis, left knee (principal)
CPT/HCPCS: 99024

== ENCOUNTER → 2025-04-24 15:14 | Outpatient (BNV) | payer OTHER, SELFPAY | PROVIDERS: PCP Physician Assistant Medical; Visit Provider Radiology Diagnostic Radiology | DX: M17.12 Unilateral primary osteoarthritis, left knee (principal); M25.462 Effusion, left knee | CPT/HCPCS: 73562 ==

== ENCOUNTER 2025-04-24 16:07 | Outpatient (REF) | payer OTHER, SELFPAY ==
--- NOTE | ~2025-04-24 | XR_ITS ---
EXAMINATION: XR KNEE 3 VIEWS LEFT HISTORY: M25.562 - Pain in left knee COMPARISON: Comparison is made with the prior examination dated 01/16/2025. FINDINGS: Standing AP views of both knees and additional lateral and sunrise patellar views of the left knee are submitted. Osseous mineralization is normal. There is no fracture or dislocation. There is moderate osteoarthritis of the medial compartment and mild osteoarthritis of the patellofemoral compartment, with joint space narrowing and osteophyte formation. The patient is status post right total knee arthroplasty. There is a small joint effusion. XR/XR knee LT 3V IMPRESSION: Small joint effusion. Osteoarthritis as described. Electronically signed by: Byron Rodarte MD 04/25/2025 07:38 AM ELSIE
[2025-04-24 16:33] LABS: MANUAL DIFF FLAG NO
[2025-04-24 17:16] LABS: Hematocrit 41.6 % (37.0-47.0); Hemoglobin 14.2 g/dl (12.0-16.0); Imm Gran Abs Auto 0.04 X10*3/uL (0.00-0.03); Imm Gran Pct Auto 0.5 % (0.0-0.4); Lymphocytes Absolute Auto 2.9 X10*3/uL (1.2-4.9); Mean Corpuscular HGB Conc 34.1 g/dl (31.0-35.0); Mean Corpuscular Hemoglobin 31.6 pg (27.0-33.0); Mean Corpuscular Volume 92.4 fL (80.0-98.0); NRBC Abs Auto 0.000 X10*3/uL (0.0-0.012); NRBC Pct Auto 0.0 /100WBC (0.0-0.2); Platelet Count 310 X10*3/uL (160-400); Red Blood Count 4.50 X10*6/uL (4.20-5.50); White Blood Count 7.6 X10*3/uL (4.8-10.8)
[2025-04-24 18:48] LABS: Anion Gap 15 (12-20); Blood Urea Nitrogen 10 mg/dL (9-16); Calcium 9.1 mg/dL (8.4-10.2); Carbon Dioxide 22 mmol/L (22-29); Chloride 101 mmol/L (96-108); Estimated Glomerular Filt Rate > 60; Potassium 4.1 mmol/L (3.3-5.1); Sodium 134 mmol/L (135-145)
== END 2025-04-24 16:08 ==
LOC: HO.HOSX 16:07
PROVIDERS: PCP Physician Assistant Medical; Visit Provider Physician Assistant
DX: M17.12 Unilateral primary osteoarthritis, left knee (principal); Z01.818 Encounter for other preprocedural examination
CPT/HCPCS: 36415; 73562; 80048; 85025